=== PATIENT | male | born 1955 | race Caucasian/White ===

== ENCOUNTER 2016-09-24 16:21 | Emergency (ER) | payer OTHER ==
[2016-09-24 16:35] VITALS: O2SAT 96
--- NOTE | 2016-09-24 17:08 | EDPHY ---
H & P Time Seen by Provider: 09/24/16 16:47 HPI/ROS: CHIEF COMPLAINT: cough HISTORY OF PRESENT ILLNESS: Patient is a 61-year-old male with a remote history of lymphoma who presents to the emergency department with persistent cough. Patient's symptoms initially started back in March when he developed rhinorrhea. Kristina time he developed a cold. He has had an intermittent cough since then. Last week on Monday his cough worsened. It is occasionally productive of clear sputum. He reported fever and chills on Monday. He has had significant fatigue and prolonged sleep. He has lost 7 lb. He denies leg pain or swelling. No recent foreign travel. He is not taking any antibiotics. No nausea or vomiting. No abdominal pain. No chest pain. The patient does complain of right lateral back pain. REVIEW OF SYSTEMS: My complete review of systems is negative except as mentioned in the HPI. Past Medical/Surgical History: Includes lymphoma, testicular cancer, hypertension, questionable TIA Social history: The patient does not smoke Smoking Status: Former smoker Physical Exam: Vitals noted. 37.4. Patient is hypertensive at 178/94. GENERAL: Well-appearing, in no acute distress, alert. HEENT: Eyes normal to inspection, normal pharynx, no signs of dehydration. NECK: No thyromegaly, no lymphadenopathy, supple. RESPIRATORY: Clear to auscultation bilaterally, no rales, rhonchi or wheezing. CVS: Regular rate and rhythm, no rubs, murmurs, or gallops. ABDOMEN: Soft, nontender, nondistended, no organomegaly. BACK: Normal to inspection, no CVA tenderness. SKIN: Normal color, no rash, warm, dry. No pallor. EXTREMITIES: No pedal edema, no calf tenderness, no Homans sign or cords, no joint swelling. NEURO/PSYCH: Alert and oriented, normal mood and affect, normal motor sensory exam. Constitutional: Initial Vital Signs Temperature (C) 37.4 C 09/24/16 16:31 Heart Rate 82 09/24/16 16:31 Respiratory Rate 17 09/24/16 16:31 Blood Pressure 178/94 H 09/24/16 16:31 O2 Sat (%) 96 09/24/16 16:31 O2 Delivery Mode Room Air Allergies/Adverse Reactions: No Known Allergies Allergy (Unverified 03/30/16 10:50) Home Medications: Medication Instructions Recorded AMLODIPINE BESYLATE/BENAZEPRIL 1 each PO DAILY 03/30/16 [Lotrel 10-20 mg] Clopidogrel Bisulfate [Clopidogrel] 75 mg PO 03/30/16 Insulin Glargine [Lantus 100 1 unit SC 03/30/16 UNITS/ML (*)] Liraglutide [Victoza 3-Abdiaziz] 0.6 mg SQ 03/30/16 Sitagliptin Phos/Metformin HCl 1 each PO 03/30/16 [Janumet 50-1,000 mg Tablet] Hydrocodone/APAP 5/325 [[place] 1 - 2 tab PO Q4 #13 tab 09/24/16 5/325 (RX)] Medical Decision Making ED Course/Re-evaluation: In the emergency department I discussed possible etiologies with the patient. I answered all his questions. Chest x-ray, and laboratory studies were ordered. Chest x-ray: No acute disease noted. Patient had a positive flu a swab. Other laboratory studies were unremarkable. I discussed the results with the patient. Answered all his questions. Patient was given warnings prior to leaving. He will return with worsening symptoms. Differential Diagnosis: My differential includes but is not limited to pneumonia, bronchitis, influenza , viral illness, lymphoma, malignancy, tuberculosis - Data Points Laboratory Results: Laboratory Results 09/24/16 17:11 09/24/16 17:11 09/24/16 09/24/16 17:11 16:57 WBC 4.20 10^3/uL (3.80-9.50) RBC 5.02 10^6/uL (4.40-6.38) Hgb 15.1 g/dL (13.7-17.5) Hct 43.7 % (40.0-51.0) MCV 87.1 fL (81.5-99.8) MCH 30.1 pg (27.9-34.1) MCHC 34.6 g/dL (32.4-36.7) RDW 12.7 % (11.5-15.2) Plt Count 159 10^3/uL (150-400) MPV 10.1 fL (8.7-11.7) Neut % (Auto) 53.9 % (39.3-74.2) Lymph % (Auto) 33.3 % (15.0-45.0) [place] % (Auto) 11.4 % (4.5-13.0) Eos % (Auto) 0.7 % (0.6-7.6) Baso % (Auto) 0.2 L % (0.3-1.7) Nucleat RBC Rel Count 0.0 % (0.0-0.2) Absolute Neuts (auto) 2.26 10^3/uL (1.70-6.50) Absolute Lymphs (auto) 1.40 10^3/uL (1.00-3.00) Absolute Monos (auto) 0.48 10^3/uL (0.30-0.80) Absolute Eos (auto) 0.03 10^3/uL (0.03-0.40) Absolute Basos (auto) 0.01 L 10^3/uL (0.02-0.10) Absolute Nucleated RBC 0.00 10^3/uL (0-0.01) Immature Gran % 0.5 % (0.0-1.1) Immature Gran # 0.02 10^3/uL (0.00-0.10) Sodium 142 mEq/L (134-144) Potassium 4.1 mEq/L (3.5-5.2) Chloride 103 mEq/L (97-110) Carbon Dioxide 24 mEq/l (22-31) Anion Gap 15 mEq/L (8-16) BUN 23 mg/dL (7-23) Creatinine 1.0 mg/dL (0.7-1.3) Estimated GFR > 60 Glucose 141 H mg/dL (70-100) Calcium 9.5 mg/dL (8.5-10.4) Influenza Typ A,B (DFA) POSITIVE FOR FLU A H (NEGATIVE) Departure - Departure Disposition: Home, Routine, Self-Care Clinical Impression: Influenza due to influenza virus, type A, human Condition: Good Instructions: Influenza (ED) Additional Instructions: Return with increasing shortness of breath cough or any other concerns. You have influenza A on your swab. Referrals: Hiral Olson MD [Medical Doctor] - 3-4 days, if not improved Prescriptions: Hydrocodone/APAP 5/325 [[place] 5/325 (RX)] 1 - 2 tab PO Q4 #13 tab
[2016-09-24 17:18] LABS: % IMMATURE GRANULYOCYTES 0.5 % (0.0-1.1); ABSOLUTE IMMATURE GRANULOCYTES 0.02 10^3/uL (0.00-0.10); ADD DIFF? NO; ADD MORPH? NO; ADD SCAN? NO; ATYPICAL LYMPHOCYTE FLAG 20 (0-99); FRAGMENT RBC FLAG 0 (0-99); HEMATOCRIT 43.7 % (40.0-51.0); HEMOGLOBIN 15.1 g/dL (13.7-17.5); LEFT SHIFT FLG 0 (0-99); LIPEMIA HEMOLYSIS FLAG 90 (0-99); MEAN CELL HEMOGLOBIN 30.1 pg (27.9-34.1); MEAN CELL HEMOGLOBIN CONCENTR. 34.6 g/dL (32.4-36.7); MEAN CELL VOLUME 87.1 fL (81.5-99.8); MEAN PLATELET VOLUME 10.1 fL (8.7-11.7); PLATELET CLUMPS FLAG 0 (0-99); PLATELET COUNT 159 10^3/uL (150-400); RED BLOOD CELL COUNT 5.02 10^6/uL (4.40-6.38); RED CELL DISTRIBUTION WIDTH 12.7 % (11.5-15.2)
--- NOTE | 2016-09-24 17:25 | DX ---
PA and lateral chest. Clinical History: Shortness of breath, possible pneumonia Comparison Study: None available. Findings: The lungs are clear. No pleural disease identified. Heart size is normal. Visualized osseous structures appear normal. Impression: Normal chest.
[2016-09-24 17:34] LABS: ANION GAP 15 mEq/L (8-16); CALCIUM 9.5 mg/dL (8.5-10.4); CARBON DIOXIDE 24 mEq/l (22-31); CHLORIDE 103 mEq/L (97-110); GLOMERULAR FILTRATION RATE > 60; GLUCOSE 141 mg/dL (70-100); POTASSIUM 4.1 mEq/L (3.5-5.2); SODIUM 142 mEq/L (134-144)
[2016-09-24 18:08] VITALS: BP 140/79; PULSE 84; RESP 18; TEMP 98.6
== END 2016-09-24 18:06 | disposition home or self-care (01) ==
DX: J10.1 Influenza due to other identified influenza virus with other respiratory manifestations (principal); I10 Essential (primary) hypertension; Z85.72 Personal history of non-Hodgkin lymphomas; Z85.47 Personal history of malignant neoplasm of testis; Z87.891 Personal history of nicotine dependence